=== PATIENT | male | born 1970 | race Asian ===

== ENCOUNTER 2023-06-02 06:05 | Day surgery (SDC) | payer OTHER, SELFPAY ==
[2023-06-02] VITALS (10 sets, daily range): BP systolic 113–172; BP diastolic 52–91; BMI 19.2
[2023-06-02] MEDS: LOW STRENGTH ASPIRIN 81 MG PO (07:09)
[2023-06-02] MEDS: NSS 157 ML IV (07:10)
[2023-06-02 07:21] LABS: Glucose - Point of Care 174 mg/dl (70-99)
[2023-06-02] MEDS: LOW STRENGTH ASPIRIN 243 MG PO (07:21)
--- NOTE | 2023-06-02 09:13 | ITS.CL.CATH ---
[employer] - Catheterization
Cardiac Catheterization
Procedure Report:
LEFT AND RIGHT HEART CATHETERIZATION
Date of Procedure: June 02, 2023
Referring: Clari Esposito MD, [facility], [facility]
PROCEDURES:
1. Left heart catheterization, coronary angiogram.
2. Right heart catheterization.
3. Ultrasound-guided access
INDICATION: Mr. Hamilton is a 52-year-old gentleman with past medical history of hypertension, hyperlipidemia, insulin-dependent type 2 diabetes mellitus, paroxysmal atrial fibrillation, chronic diastolic heart failure, severe pulmonary hypertension,
severe bicuspid aortic stenosis based on last echocardiogram at [facility], at least moderate mitral stenosis with prolonged hospitalization at [facility] from March 27 until April 24 who now presents for a left and right heart
catheterization. His echocardiogram at [facility] is from April 10, 2023 showing normal LV size and systolic function, LVEF of 60%, moderate to severe LVH, grade 1 diastolic dysfunction, mildly dilated left atrium, thickened mitral valve
leaflets with moderate mitral stenosis, mean transmitral gradient of 6 mmHg, mild mitral regurgitation. Aortic valve appears bicuspid with significant calcification, severe aortic valve stenosis, peak velocity of 4.6 m/s, mean and peak trans aortic
gradients of 86/53 mmHg, aortic valve area of 0.7 cm2, dimensionless index of 0.21, moderate to severe aortic regurgitation, holodiastolic flow reversal is present in the descending thoracic aorta, mild to moderate tricuspid regurgitation, severely
elevated pulmonary artery systolic pressure of 76 mmHg and right atrial pressure of 3 mmHg.
ACCESS:
1. Right radial artery, 6 Norwegian sheath, under ultrasound guidance.
2. Right brachial vein, 6 Norwegian sheath, under ultrasound guidance.
HEMODYNAMICS : (mmHg)
RA (m) : 12
RV (s/d,m) : 55/14, 28
PA (s/d, m) : 57/27, 37
PCWP (m) : 32
Cardiac Output : 3.66 L/min by Jay
Cardiac Index : 2.34 L/min/m-2 by Jay
Systemic vascular resistance: 1706 dsc^(-5)
Pulmonary vascular resistance: 1.64 vela unit
Heart rate: 63 bpm
VALVULAR ASSESSMENT: A 6 Norwegian Warren dual-lumen catheter was utilized to obtain transmitral and transaortic gradients
1. Moderate to severe aortic valve stenosis (mean transaortic invasive gradient of 36 mmHg, aortic valve area of 0.6 cm�)
2. Severe mitral valve stenosis (mean transmitral NVC gradient of 12 mmHg, mitral valve area of 1.2 cm�)
AO (s/d) : 147/67, 98
LV (s/d) : 168/5
LVEDP : 18
CORONARY FINDINGS
DOMINANCE: Right
LEFT MAIN: The left main artery is a large-caliber vessel which gives rise to a left anterior descending artery ramus intermedius branch and a left circumflex artery. Angiographically normal vessel.
LEFT ANTERIOR DESCENDING: The left into descending artery is a large-caliber vessel which gives rise to 2 major diagonal branch as it courses through the anterior interventricular groove and wraps around the apex. There is minimal luminal
irregularities.
RAMUS INTERMEDIUS: The ramus intermedius artery is a medium caliber vessel with minimal luminal irregularities.
CIRCUMFLEX: The left circumflex artery is a medium caliber vessel which gives rise to 2 small caliber left posterolateral branches. There is minimal luminal irregularities.
RIGHT CORONARY ARTERY: The right coronary artery is a large-caliber vessel which gives rise to the right posterior descending artery and right posterolateral system. Angiographically normal artery.
RADIATION SUMMARY: Fluoro Time (min): 6.5, Dose (mGy): 173.8, DAP (Gy.cm2) : 13.5
Closure Device:
1. Vascular band over right radial artery, 10 cc of air.
2. Manual pressure was held over the right brachial venous access site with successful hemostasis.
CONCLUSIONS
1. Non-obstructive coronary artery disease.
2. Elevated left and right-sided filling pressures with severe pulmonary hypertension and normal cardiac output.
3. Moderate to severe aortic stenosis (mean transaortic invasive gradient of 36 mmHg, aortic valve area of 0.6 cm�)
4. Severe mitral stenosis (mean transmitral NVC gradient of 12 mmHg, mitral valve area of 1.2 cm�)
RECOMMENDATIONS
1. Awaiting radial band per protocol.
2. CT surgery consult as an outpatient for evaluation of aortic and mitral valve replacement.
3. We will obtain an echocardiogram. [place] given prior study was at a different hospital.
4. Consideration of obtaining CT angiogram of the chest given concern for possible bicuspid aortic valve on prior echocardiogram to define aortic valve morphology and rule out any concerns for concomitant aortopathy.
5. Optimization of cardiovascular risk factors.
Clari Esposito MD, FACC, [facility]
[2023-06-02] MEDS: NSS 1000 IV (09:38)
[2023-06-02] MEDS: COUMADIN 3 MG PO (14:29)
== END 2023-06-02 14:34 | disposition home or self-care (01) ==
LOC: CATH 06:05
PROVIDERS: ATTENDING PHYSICIAN Internal Medicine Interventional Cardiology; CONSULT PHYSICIAN Thoracic Surgery (Cardiothoracic Vascular Surgery); FAMILY PHYSICIAN Family Medicine
DX: I25.10 Atherosclerotic heart disease of native coronary artery without angina pectoris (principal); I48.0 Paroxysmal atrial fibrillation; I08.3 Combined rheumatic disorders of mitral, aortic and tricuspid valves; I11.0 Hypertensive heart disease with heart failure; I50.32 Chronic diastolic (congestive) heart failure; E78.5 Hyperlipidemia, unspecified; I27.20 Pulmonary hypertension, unspecified; E11.9 Type 2 diabetes mellitus without complications; Z79.4 Long term (current) use of insulin; Z79.82 Long term (current) use of aspirin; Z79.84 Long term (current) use of oral hypoglycemic drugs; Z79.01 Long term (current) use of anticoagulants
CPT/HCPCS: 76937; 82962; 93306; 93460; C1894; Q9967

== ENCOUNTER → 2024-02-10 10:24 | Outpatient (REF) | payer OTHER, SELFPAY | LOC: RCS 10:24 | PROVIDERS: ATTENDING PHYSICIAN Internal Medicine Interventional Cardiology | DX: Z01.818 Encounter for other preprocedural examination (principal); Z95.2 Presence of prosthetic heart valve; I35.0 Nonrheumatic aortic (valve) stenosis; I05.0 Rheumatic mitral stenosis | CPT/HCPCS: 93306 ==